=== PATIENT | female | born 1990 | race Caucasian/White ===

== ENCOUNTER → 2024-03-09 13:56 | Outpatient (REF) | payer OTHER, SELFPAY | LOC: RAD 13:56 | PROVIDERS: ATTENDING PHYSICIAN Nurse Practitioner Family; FAMILY PHYSICIAN Physician Assistant Medical | DX: Z34.90 Encounter for supervision of normal pregnancy, unspecified, unspecified trimester (principal) | CPT/HCPCS: 76801; 76817 ==

== ENCOUNTER 2024-12-17 12:19 | Inpatient (IN) | payer OTHER, SELFPAY ==
[2024-12-17 12:46] LABS: % Basophils 0.5 % (0-2); % Eosinophils 0.9 % (0-6); % Immature Granulocytes 0.5 % (0-0.5); % Lymphocytes 21.1 % (20.5-51.1); % Monocytes 8.1 % (1.7-9.3); % Neutrophils 68.9 % (42.2-75.2); Absolute Eosinophils 0.1 10^3/uL (0-0.7); Absolute Lymphocytes 1.6 10^3/uL (1.2-3.4); Absolute Monocytes 0.6 10^3/uL (0.1-0.6); Absolute Neutrophils 5.2 10^3/uL (1.4-6.5); Hematocrit 38.6 % (37.0-47.0); Mean Corp Hgb Conc. 33.7 g/dL (33.0-37.0); Mean Corpuscular Hgb 27.4 pg (27.0-31.0); Mean Corpuscular Volume 81.3 fL (81.0-99.0); Nucleated Red Blood Cells % 0 %; Platelet Count 157 10^3/uL (130-400); Red Blood Cell Count 4.75 10^6/uL (4.20-5.40); Red Cell Dist. Width 12.1 % (11.5-14.5); White Blood Cell Count 7.5 10^3/uL (4.8-10.8)
[2024-12-17 13:16] LABS: Blood Urea Nitrogen 7 mg/dl (7-17); Carbon Dioxide 24 mmol/L (22-30); Chloride 102 mmol/L (98-107); Glucose 97 mg/dl (70-99); Potassium 4.4 mmol/L (3.5-5.1); Sodium 134 mmol/L (135-145); eGFR > 60.00
[2024-12-17 13:17] LABS: ALT (SGPT) 37 U/L (0-35); AST (SGOT) 55 U/L (14-36); Albumin 3.4 g/dl (3.5-5.0); Alkaline Phosphatase 268 U/L (38-126)
[2024-12-17 13:23] VITALS: BP 148/85; BMI 26.0
[2024-12-17 13:41] LABS: Protein/creatinine Ratio 0.5; Urine Protein 14 mg/dl
[2024-12-17 14:26] LABS: Estimated Creatinine Clearance 109 ml/min
[2024-12-17] MEDS: CELESTONE SOLUSPAN 2 MG IM (15:38)
--- NOTE | 2024-12-17 18:54 | CON.NEO ---
Consultation
-
Date/Time Consultation Requested: 12/17/2024
Date/Time Consultation Performed: 12/17/2024
Requesting Provider: Iggy
Performing Provider: Felecia
Reason for Consultation: Potential delivery
Consultation - Neonatology
Maternal Labs
Blood Type: A Positive
Antibody Screen: Negative
RPR: Nonreactive
Rubella: Immune
Hep B S Ag: Negative
Hep C: Negative
HIV: Nonreactive
Group B Strep: Unknown
Chlamydia/GC: Negative
Consult
Mother presented to L&D from testing due to elevated blood pressures. Newly identified IUGR with AC at less than 5th percentile, growth at 25th percentile.
Mother being followed closely due to history of fibroid. Mother reports that US have shown abdominal cyst most consistent with ovarian cyst. I do not have access to these records to review. Mother reports that the recommendation would be
for to have abdominal US to evaluate after the delivery.
Current plan from OB/MFM - mother is admitted for continued blood pressure monitoring. She received one dose of betamethasone on 12/17/2024. Plan to deliver for severe range blood pressures or worsening clinical picture.
Maternal Labs:
A+, Abscr-neg. normal pap- HPV neg (05/23/24), rubella immune, RPR-NR. HIV/HCV/HbsAg-neg, GC/CT- negative, 1hr gtt 66, AFP negative, NIPT low risk, CF negative.
Mother, Father and Grandmother were present for the discussion.
They anticipate having a girl and naming her Jhonny.
Mother plans to breastfeed and follow up with [facility].
Points discussed at consult:
As is less than 36 weeks, this will necessitate a NICU admission per unit policy. If is clinically well, then may return to parents for nursery care after 12-25 hours.
- Management at delivery including the possibility of CPAP/intubation/surfactant discussed
- Respiratory: RDS possibility with possibility of worsening for 24-48 hrs, management including CPAP/surfactant/ventilator support may be required
- Nutrition: Hypoglycemia, need for IV fluids, gradual feed advance, Gavage feeding, importance of colostrum feeding, initiation of expression of colostrum within 3-4 hours, availability of donor milk, safety fo donor milk etc. were discussed.
Mother provided verbal consent for donor milk.
- Procedures: Intubation, CPAP, IV placement, blood tests, umbilical arterial or venous lines, gavage feedings were discussed
- CVS: possibility of PDA not discussed in detail at this time
- Jaundice possibility and need for phototherapy discussed
- Family Centered Care: Discussed FCC with emphasis on parental participation during sign off and during management rounds and is encouraged. Availability of blanka eyes camera also discussed
Mom and Dad were given the opportunity to ask questions throughout and open invitation to call if any questions come as they absorb all the information given so far.
Face to Face Time
Total Azbp-xv-Mehh Time (in Minutes): 30
[2024-12-18 00:29] LABS: ALT (SGPT) 39 U/L (0-35); AST (SGOT) 53 U/L (14-36); Albumin 3.7 g/dl (3.5-5.0); Alkaline Phosphatase 331 U/L (38-126); Blood Urea Nitrogen 6 mg/dl (7-17); Calcium 9.6 mg/dl (8.4-10.2); Carbon Dioxide 18 mmol/L (22-30); Chloride 104 mmol/L (98-107); Estimated Creatinine Clearance 109 ml/min; Glucose 120 mg/dl (70-99); Potassium 4.4 mmol/L (3.5-5.1); Sodium 134 mmol/L (135-145); Total Bilirubin 0.2 mg/dl (0.2-1.3); Total Protein 6.4 g/dl (6.3-8.2); eGFR > 60.00
[2024-12-18 00:34] LABS: % Basophils 0.2 % (0-2); % Immature Granulocytes 2.3 % (0-0.5); % Lymphocytes 12.5 % (20.5-51.1); % Monocytes 1.6 % (1.7-9.3); % Neutrophils 83.4 % (42.2-75.2); Absolute Immature Granulocytes 0.2 10^3/uL (0-0.05); Absolute Lymphocytes 1.2 10^3/uL (1.2-3.4); Absolute Monocytes 0.2 10^3/uL (0.1-0.6); Absolute Neutrophils 7.8 10^3/uL (1.4-6.5); Hemoglobin 13.3 g/dL (12.0-16.0); Mean Corp Hgb Conc. 34.1 g/dL (33.0-37.0); Mean Corpuscular Hgb 27.5 pg (27.0-31.0); Mean Corpuscular Volume 80.7 fL (81.0-99.0); Nucleated Red Blood Cells % 0 %; Platelet Count 177 10^3/uL (130-400); Red Blood Cell Count 4.83 10^6/uL (4.20-5.40); Red Cell Dist. Width 12.1 % (11.5-14.5); White Blood Cell Count 9.3 10^3/uL (4.8-10.8)
[2024-12-18] MEDS: PRENATAL PLUS PO (08:00)
[2024-12-18 12:28] LABS: % Basophils 0.1 % (0-2); % Immature Granulocytes 0.8 % (0-0.5); % Lymphocytes 13.6 % (20.5-51.1); % Monocytes 7.9 % (1.7-9.3); % Neutrophils 77.6 % (42.2-75.2); Absolute Immature Granulocytes 0.1 10^3/uL (0-0.05); Absolute Monocytes 1.1 10^3/uL (0.1-0.6); Absolute Neutrophils 11.1 10^3/uL (1.4-6.5); Hematocrit 39.5 % (37.0-47.0); Hemoglobin 13.1 g/dL (12.0-16.0); Mean Corp Hgb Conc. 33.2 g/dL (33.0-37.0); Mean Corpuscular Hgb 27.4 pg (27.0-31.0); Mean Corpuscular Volume 82.6 fL (81.0-99.0); Mean Platelet Volume 12.5 fL (7.4-10.4); Nucleated Red Blood Cells % 0 %; Platelet Count 173 10^3/uL (130-400); Red Blood Cell Count 4.78 10^6/uL (4.20-5.40); Red Cell Dist. Width 12.1 % (11.5-14.5); White Blood Cell Count 14.4 10^3/uL (4.8-10.8)
[2024-12-18 13:02] LABS: ALT (SGPT) 37 U/L (0-35); AST (SGOT) 45 U/L (14-36); Albumin 3.6 g/dl (3.5-5.0); Alkaline Phosphatase 306 U/L (38-126); Blood Urea Nitrogen 10 mg/dl (7-17); Calcium 9.3 mg/dl (8.4-10.2); Carbon Dioxide 20 mmol/L (22-30); Chloride 103 mmol/L (98-107); Estimated Creatinine Clearance 109 ml/min; Glucose 124 mg/dl (70-99); Potassium 3.8 mmol/L (3.5-5.1); Sodium 134 mmol/L (135-145); Total Bilirubin 0.1 mg/dl (0.2-1.3); Total Protein 6.4 g/dl (6.3-8.2); eGFR > 60.00
[2024-12-18] MEDS: CELESTONE SOLUSPAN 2 MG IM (15:13)
[2024-12-19 04:31] LABS: Hematocrit 36.6 % (37.0-47.0); Hemoglobin 12.2 g/dL (12.0-16.0); Mean Corp Hgb Conc. 33.3 g/dL (33.0-37.0); Mean Corpuscular Hgb 27.5 pg (27.0-31.0); Mean Corpuscular Volume 82.4 fL (81.0-99.0); Mean Platelet Volume 12.1 fL (7.4-10.4); Platelet Count 162 10^3/uL (130-400); Red Blood Cell Count 4.44 10^6/uL (4.20-5.40); Red Cell Dist. Width 12.2 % (11.5-14.5); White Blood Cell Count 12.6 10^3/uL (4.8-10.8)
[2024-12-19 05:17] LABS: ALT (SGPT) 37 U/L (0-35); AST (SGOT) 48 U/L (14-36); Albumin 3.3 g/dl (3.5-5.0); Alkaline Phosphatase 256 U/L (38-126); Blood Urea Nitrogen 10 mg/dl (7-17); Calcium 8.8 mg/dl (8.4-10.2); Carbon Dioxide 22 mmol/L (22-30); Chloride 106 mmol/L (98-107); Estimated Creatinine Clearance 109 ml/min; Glucose 104 mg/dl (70-99); Potassium 4.5 mmol/L (3.5-5.1); Sodium 136 mmol/L (135-145); Total Bilirubin 0.2 mg/dl (0.2-1.3); Total Protein 5.9 g/dl (6.3-8.2); eGFR > 60.00
[2024-12-19] MEDS: CYTOTEC 25 MICROGRAM VAG (09:26)
[2024-12-19] MEDS: CYTOTEC 50 MICROGRAM PO ×3 (13:37→22:15)
[2024-12-19] MEDS: PRENATAL PLUS 1 TABLET PO (13:41)
[2024-12-19] MEDS: LR 1000 IV (19:36)
[2024-12-20] MEDS: CYTOTEC PO ×2 (04:48)
[2024-12-20 05:43] LABS: Hematocrit 38.6 % (37.0-47.0); Hemoglobin 13.2 g/dL (12.0-16.0); Mean Corp Hgb Conc. 34.2 g/dL (33.0-37.0); Mean Corpuscular Hgb 27.7 pg (27.0-31.0); Mean Corpuscular Volume 81.1 fL (81.0-99.0); Mean Platelet Volume 12.1 fL (7.4-10.4); Platelet Count 164 10^3/uL (130-400); Red Blood Cell Count 4.76 10^6/uL (4.20-5.40); Red Cell Dist. Width 12.1 % (11.5-14.5); White Blood Cell Count 14.2 10^3/uL (4.8-10.8)
[2024-12-20 06:05] LABS: ALT (SGPT) 92 U/L (0-35); AST (SGOT) 96 U/L (14-36); Albumin 3.4 g/dl (3.5-5.0); Alkaline Phosphatase 287 U/L (38-126); Blood Urea Nitrogen 11 mg/dl (7-17); Carbon Dioxide 22 mmol/L (22-30); Chloride 104 mmol/L (98-107); Estimated Creatinine Clearance 109 ml/min; Glucose 87 mg/dl (70-99); Potassium 3.9 mmol/L (3.5-5.1); Sodium 134 mmol/L (135-145); Total Bilirubin < 0.1 mg/dl (0.2-1.3); Total Protein 6.1 g/dl (6.3-8.2); eGFR > 60.00
[2024-12-20] MEDS: MAGNESIUM SULFATE 100 IV (06:29)
[2024-12-20] MEDS: LR 1000 IV (06:29)
[2024-12-20] MEDS: MAGNESIUM SULFATE 40 GRAM 1000 IV (06:53)
[2024-12-20] MEDS: CYTOTEC 50 MICROGRAM PO (07:08)
[2024-12-20] MEDS: PRENATAL PLUS PO (07:11)
[2024-12-20] MEDS: TRANDATE 20 MG IV ×2 (08:00→16:00)
[2024-12-20] MEDS: STADOL 1 MG IV (08:03)
[2024-12-20 11:54] LABS: Hemoglobin 13.8 g/dL (12.0-16.0); Mean Corp Hgb Conc. 34.5 g/dL (33.0-37.0); Mean Corpuscular Hgb 27.7 pg (27.0-31.0); Mean Corpuscular Volume 80.3 fL (81.0-99.0); Mean Platelet Volume 12.6 fL (7.4-10.4); Platelet Count 177 10^3/uL (130-400); Red Blood Cell Count 4.98 10^6/uL (4.20-5.40); Red Cell Dist. Width 12.2 % (11.5-14.5); White Blood Cell Count 13.5 10^3/uL (4.8-10.8)
[2024-12-20 12:00] LABS: ALT (SGPT) 140 U/L (0-35); AST (SGOT) 160 U/L (14-36); Albumin 3.6 g/dl (3.5-5.0); Alkaline Phosphatase 339 U/L (38-126); Blood Urea Nitrogen 10 mg/dl (7-17); Carbon Dioxide 25 mmol/L (22-30); Chloride 102 mmol/L (98-107); Estimated Creatinine Clearance 109 ml/min; Glucose 87 mg/dl (70-99); Potassium 4.3 mmol/L (3.5-5.1); Sodium 135 mmol/L (135-145); Total Bilirubin 0.1 mg/dl (0.2-1.3); Total Protein 6.4 g/dl (6.3-8.2); eGFR > 60.00
[2024-12-20] MEDS: ANCEF 10 IV (12:24)
[2024-12-20] MEDS: BICITRA 30 ML PO (12:24)
[2024-12-20] MEDS: TYLENOL 1000 MG PO (12:24)
[2024-12-20] MEDS: TORADOL 15 MG IV ×2 (14:04→20:08)
--- NOTE | 2024-12-20 14:07 | HPS.HSE ---
Family Physician
-
Family Physician: NOT KNOW UNKNOWN - PT DOES
Chief Complaint
-
IUGR, preeclampsia with severe features
History of Present Illness
Patient is a 34yo @35.4 who presented to Labor and Delivery on 12/17 from [facility] with elevated BPs, proteinuria, mildly elevated LFTs and IUGR. She had a growth US done for uterine fibroid which showed IUGR with AC in the 5%tile. She was sent
to [facility] for NST and PEPE. In [facility], she had one severe range BP with Pr/Cr 0.5 and AST/ALT 37. [facility] recommended inpatient observation to trend LFTs, monitor BPs and betamethasone. Patient was monitored on L&Dand initially LFTs were downtrending but
then started to increased. Induction of labor was recommended. Her induction started on 12/19 with Cytotec. She received a total of 225mcg of Cytotec. Repeat labs on the morning of 12/20 showed severe range LFTs (AST/ALT 96/92) and she was started on
magnesium. Repeat labs 6 hours later showed LFTs continued to increased (AST/ALT 160/140) and her cervical exam remained unchanged. Given patient was remote from delivery with increasing LFTs, section was recommended.
complications:
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
- Posterior uterine fibroid
- Suspected ovarian cyst 10mm
labs: A+, Abscr-neg. normal pap- HPV neg (05/23/24), rubella immune, RPR-NR. HIV/HCV/HbsAg-neg, GC/CT- negative, 1hr gtt 66, AFP negative, NIPT low risk, CF negative.
PMHx- neg
FHx- non contributory
Social- no etoh, tobacco, or illicit drug use
NKA
Meds: 28 mg- 800 mcg tablet
Medical History
Past Medical History
Past Medical History: Reports None
Past Surgical History: Reports None
Social History
Tobacco: Non-smoker
Alcohol: None
Drug: None
Family History
Family History: Not pertinent
Allergies / Home Medications
Allergies reflects when Allergies were last updated in [facility].
Home Medications with original date entered in [facility]
Allergy/Medication List:
Meds: PNV
NKDA
Review of Systems
-
A 12 point ROS was completed and negative except as noted: Yes
Physical Exam
Vital Signs
Vital Signs
Temp Pulse Resp BP
98.4 F 16 67 158/88
12/17/24 13:23 12/17/24 13:23 12/17/24 13:23 12/20/24 08:00
Physical Exam
General: Well Developed and Well Nourished
HEENT: NormoCephalic
Respiratory: Non Labored Respirations
Cardiac: Regular Rhythm
Skin: Warm and Dry
Neuro: Awake and Alert
Psych: Calm
Laboratory Results
-
12/20/24 11:32
12/20/24 11:32
Laboratory Results
Total Bilirubin 0.1 mg/dl (0.2-1.3) L 12/20/24 11:32
AST 160 U/L (14-36) H 12/20/24 11:32
ALT 140 U/L (0-35) H 12/20/24 11:32
Alkaline Phosphatase 339 U/L (38-126) H 12/20/24 11:32
Impression/Plan
-
IMPRESSION:
Patient is a 34yo at 35.4 weeks preeclampsia with severe features (LFTs), IUGR, uterine fibroid, increasing LFTs remote from delivery
PLAN:
- LFTs continue to increased and cervical exam remains cl/th/hi despite 24 hours of Cytotec. Since LFTs continue to increase and she is remote from delivery, recommend proceeding with primary section. Risks, benefits and alternatives
including bleeding, infection, damage to surrounding structures and need for future operations discussed and all questions answered. Consents were signed. Anesthesia was notified.
- Ancef 2g ordered for antibiotic prophylaxis. Bicitra and Tylenol ordered.
--- NOTE | 2024-12-20 14:23 | OR.RPT ---
Operative Report
Operative Report
Preop diagnosis: IUP @35.4, preeclampsia with severe features, worsening LFTs, remote from delivery, uterine fibroid, IUGR
Postop diagnosis: same
Procedure: Primary low transverse section
Surgeon: Juan Francisco
Anesthesia: Park, spinal
QBL: 525mL
Findings: Viable female born at 1305, with Apgars 9/9. Uterus not exteriorized secondary to 6cm pedunculated posterior fibroid, normal appearing bilateral fallopian tubes, 2cm anterior subserosal fibroid
Complications: none
Ruffin catheter draining clear urine before and after the procedure
Indication: Patient is a 34yo @35.4 who presented to Labor and Delivery on 12/17 from [facility] with elevated BPs, proteinuria, mildly elevated LFTs and IUGR. She had a growth US done for uterine fibroid which showed IUGR with an AC in the 5%tile.
She was sent to [facility] for NST and PEPE. In [facility], she had one severe range BP with Pr/Cr 0.5 and AST/ALT 37. [facility] recommended inpatient observation to trend LFTs, monitor BPs and betamethasone. Patient was monitored on L&D and initially LFTs were
downtrending but then started to increase. Induction of labor was recommended. Her induction started on 12/19 with Cytotec. She received a total of 225mcg of Cytotec. Repeat labs on the morning of 12/20 showed severe range LFTs (AST/ALT 96/92) and she
was started on magnesium. Repeat labs 6 hours later showed LFTs continued to increased (AST/ALT 160/140) and her cervical exam remained unchanged (cl/th/hi). Given patient was remote from delivery with increasing LFTs, section was
recommended.
Procedure: Patient was taken to the operating room where spinal anesthesia was administered and found to be adequate. 2g of Ancef was given for antibiotic prophylaxis. The abdomen was prepped with ChloraPrep. The patient was draped in the normal
sterile fashion. She was placed in the dorsal supine position with a left lateral tilt. A Pfannenstiel incision was made with a 10 blade and carried down to the fascia with a scalpel. Hemostasis achieved with Bovie. The fascia was incised and
dissected laterally with Terrazas scissors. The superior aspect of the fascia was grasped with Whit clamps. The underlying rectus fascia was sharply dissected with Terrazas scissors. In a similar fashion the inferior aspect of the fascia was elevated with
Whit clamps and the rectus muscle was dissected off with Terrazas scissors. The rectus muscles were down the midline to the level of the pubic symphysis with manual dissection and Metzenbaum. The peritoneum was bluntly entered and extended
using manual traction and Terrazas scissors.
Bhardwaj retractor and bladder blade were placed revealing good visualization of the bladder. The vesicouterine peritoneum was identified. A thin lower uterine segment was noted. The lower uterine segment was incised with a scalpel. Amniotic sac
noted at entry into the cavity. The amniotic sac was ruptured with an Allis clamp for clear fluid. The uterine incision was extended bluntly with lateral and upward traction.
The fetus was in cephalic presentation. The head was elevated out of the pelvis with special attention paid to avoid using the uterine incision as a fulcrum. Gentle fundal pressure was applied one the head was brought to the incision. The head
delivered through the hysterotomy and the rest of the delivered without difficulty. Delayed cord clamping was performed. The infant was handed off to the c application developer. IV oxytocin was started to facilitate uterine contractions. The placenta
was manually extracted and sent to pathology for evaluation. The uterus was not exteriorized as there was a 6cm pedunculated posterior fibroid. Allis clamps were placed at the apices of the hysterotomy. The inside of the uterus was wiped with a lap
sponge to assure complete removal of placental membranes. Fundal massage was performed and uterus noted to be firm. The uterine incision was closed with 0 Vicryl in a running locked fashion. Oozing noted from the right side of the hysterotomy and
Bovie cautery was used to achieve hemostasis. The hysterotomy was inspected and noted to be hemostatic. Blood clots and fluid were wiped out of the abdomen and pelvis with moist laparotomy sponges. The hysterotomy was examined again and noted to be
hemostatic.
The rectus muscles were inspected and noted to be hemostatic. The fascial layer was closed in a running continuous fashion using 0 Vicryl. The subcutaneous tissue was copiously irrigated and any small bleeding vessels were cauterized with Bovie
cautery. The subcutaneous tissue was reapproximated in a running continuous fashion with 2-0 Plain. The skin was closed with 4-0 Vicryl in a subcuticular fashion. The incision was covered with skin glue. The patient tolerated the procedure well. All
sponge and instrument counts were correct times two. The patient was taken to the recovery room in stable condition.
[2024-12-20] MEDS: TRANDATE 40 MG IV (16:20)
[2024-12-20] MEDS: PROCARDIA XL (EXTENDED RELEASE) 30 MG PO (20:08)
[2024-12-20] MEDS: ZOFRAN 4 MG IV (20:08)
[2024-12-21] MEDS: LR 1000 IV (00:04)
[2024-12-21] MEDS: TORADOL 15 MG IV ×2 (02:00→08:08)
[2024-12-21] MEDS: MAGNESIUM SULFATE 40 GRAM 1000 IV (02:00)
[2024-12-21 06:40] LABS: Hematocrit 40.3 % (37.0-47.0); Hemoglobin 14.2 g/dL (12.0-16.0); Mean Corp Hgb Conc. 35.2 g/dL (33.0-37.0); Mean Corpuscular Hgb 28.2 pg (27.0-31.0); Mean Corpuscular Volume 80.1 fL (81.0-99.0); Mean Platelet Volume 12.2 fL (7.4-10.4); Platelet Count 190 10^3/uL (130-400); Red Blood Cell Count 5.03 10^6/uL (4.20-5.40); Red Cell Dist. Width 12.3 % (11.5-14.5); White Blood Cell Count 17.1 10^3/uL (4.8-10.8)
[2024-12-21 06:47] LABS: ALT (SGPT) 173 U/L (0-35); AST (SGOT) 162 U/L (14-36); Albumin 3.7 g/dl (3.5-5.0); Alkaline Phosphatase 296 U/L (38-126); Blood Urea Nitrogen 8 mg/dl (7-17); Calcium 6.5 mg/dl (8.4-10.2); Carbon Dioxide 24 mmol/L (22-30); Chloride 99 mmol/L (98-107); Estimated Creatinine Clearance 109 ml/min; Glucose 98 mg/dl (70-99); Potassium 4.2 mmol/L (3.5-5.1); Sodium 134 mmol/L (135-145); Total Bilirubin 0.2 mg/dl (0.2-1.3); Total Protein 6.6 g/dl (6.3-8.2); eGFR > 60.00
--- NOTE | 2024-12-21 08:01 | W.PN.ANS.POP ---
Anesthesia Post Operative
- Anesthesia Post Op Note
Vital Signs Stable-See Nursing Note: Yes
Airway Patent: Yes
Adequate Pain Control: Yes
Change in Mental Status: No
Current Postoperative Nausea & Vomiting: No
Anesthesia Complications: No
General Anesthetic Recall: No
Unplanned Admission: No
Post Op Hydration Adequate: Yes
[2024-12-21] MEDS: PRENATAL PLUS 1 TABLET PO (08:07)
[2024-12-21] MEDS: PROCARDIA XL (EXTENDED RELEASE) 30 MG PO (08:07)
[2024-12-21] MEDS: MOTRIN 600 MG PO ×2 (14:35→21:05)
[2024-12-21] MEDS: SENOKOT-S 1 TABLET PO (14:35)
[2024-12-21] MEDS: LR IV (14:35)
[2024-12-21] MEDS: TYLENOL 650 MG PO (21:04)
[2024-12-22 05:00] LABS: Hematocrit 40.6 % (37.0-47.0); Hemoglobin 13.5 g/dL (12.0-16.0); Mean Corp Hgb Conc. 33.3 g/dL (33.0-37.0); Mean Corpuscular Hgb 27.3 pg (27.0-31.0); Mean Platelet Volume 11.5 fL (7.4-10.4); Platelet Count 214 10^3/uL (130-400); Red Blood Cell Count 4.95 10^6/uL (4.20-5.40); Red Cell Dist. Width 12.3 % (11.5-14.5); White Blood Cell Count 10.3 10^3/uL (4.8-10.8)
[2024-12-22] MEDS: TRANDATE 200 MG PO (05:13)
[2024-12-22 05:25] LABS: ALT (SGPT) 99 U/L (0-35); AST (SGOT) 54 U/L (14-36)
[2024-12-22] MEDS: SENOKOT-S 1 TABLET PO (08:03)
[2024-12-22] MEDS: MOTRIN 600 MG PO ×2 (08:03→20:43)
[2024-12-22] MEDS: PRENATAL PLUS 1 TABLET PO (08:03)
[2024-12-22] MEDS: PROCARDIA XL (EXTENDED RELEASE) 30 MG PO (08:04)
[2024-12-22 16:17] LABS: Syphilis/T. pallidum Ab Reflex Negative (Negative)
[2024-12-22] MEDS: TYLENOL 650 MG PO (20:42)
--- NOTE | 2024-12-23 04:36 | DOWNTIME ---
There was a [employer] Client Job Developer Downtime on 12/23/2024 from 0100 to 12/23/2023 at 0205 . Downtime documentation of patient's care, including medication administrations, has been reconciled in the electronic record per guidelines. Refer to the
patient's paper chart under the miscellaneous tab to see printed paper medication records and downtime forms.
[2024-12-23] MEDS: PRENATAL PLUS 1 TABLET PO (08:48)
[2024-12-23] MEDS: SENOKOT-S 1 TABLET PO (08:48)
[2024-12-23] MEDS: MOTRIN 600 MG PO ×2 (08:48→19:40)
[2024-12-23] MEDS: PROCARDIA XL (EXTENDED RELEASE) 30 MG PO (08:49)
--- NOTE | 2024-12-23 10:31 | CON.CAR ---
Addendum entered and electronically signed by Chris Rowe MD 12/23/24 11:19:
I saw and examined the patient.
The SENIOR ANIMAL TRAINER or PA's note was reviewed and I agree with the note.
Comment: General: Well developed, well nourished in NAD.
Neck: Supple, no JVD, HJR, carotids +2 B/L, no bruits bilaterally.
Heart: Non displaced PMI, RRR, no murmurs, No S3, S4, no rubs.
Lungs: Clear to auscultation bilaterally, no wheeze, rhonchi, rubs bilaterally,
normal expiratory phase.
Extremities: No clubbing, cyanosis or edema bilaterally.
Neuro: Grossly nonfocal, awake, alert and oriented x3.
Myrna has no significant past medical history. Cardiology is consulted for preeclampsia and hypertension. Her blood pressure is suboptimally controlled on nifedipine. Will add labetalol 200 mg p.o. twice daily. Will check EKG and echocardiogram.
She is asked to follow-up blood pressure at home. Hopefully over time these medications can be weaned off. Discussed with patient and in detail. Hopeful stable for discharge on 12/24
Original Note:
Consultation
Consultation Request
Date/Time Consultation Requested: 12/23/24
Date/Time Consultation Performed: 12/23/24
Requesting Provider: Dr. Parkinson
Performing Provider: Dr. Rowe
Reason for Consultation: Severe pre-eclampsia, post- HTN
Medical History
-
History of Present Illness:
Patient came to for nonstress test last and since admission had delivery and cardiology is now consulted for post- HTN. Patient reports miscarriage last year and that on an u/s following that she was noted to have a
uterine fibroid. Patient reports that she was ordered u/s q 6 weeks with this to monitor uterine fibroid size and during one of the u/s studies there was concern for ovarian cyst and u/s studies were moved up to every 4 weeks.
Throughout this time patient was following with [employer] and reports she was always pleasantly surprised that her BP was reportedly good because during occasional PCP visits prior to her BP would be high initially and then improve during the
office visit. Patient was also pleasantly surprised about her BPs being normal during because her mother had issues with HTN during pregnancies for patient and patient's older brother including due to HTN during , but
patient is not sure if her mother was actually diagnosed with pre-eclampsia. During her routine u/s last there was possible IUGR and so patient was sent to for nonstress test and patient was noted to be HTN. Patient was admitted
and labs worsened throughout the weekend with increased proteinuria and worsening LFTs. Patient had on 12/20/24 and post- has continued with HTN.
PMH:
Uterine fibroid
Intrauterine growth restriction
s/p 12/20/24
FH HTN
Past Medical History
Past Medical History: Other (in HPI)
Past Surgical History: None
Social History
Tobacco: Non-Smoker
Alcohol: Occasional (none while and prior to was occasional to rare)
Drug: None
Personal:
Living: With Family
Employment: Employed
Family History
Family History: Hypertension (38 y/o brother with HTN) and Other (mother had HTN while with patient's older sibling and was delivered early due to HTN, patient's mother was monitored for HTN, but no intervention required while with
patient)
Allergies / Home Medications
Allergy/AdvReac Type Severity Reaction Status Date / Time
No Known Allergies Allergy Verified 12/17/24 13:08
�Medication �Instructions �Recorded �Confirmed �Type
1 tab PO HS 12/17/24 12/17/24 History
Review of Systems
-
History Source: Patient and Family ( sitting bedside)
All other systems: Negative unless noted
Physical Exam
Vital Signs
Temp Pulse Resp BP
98.4 F 68 67 150/84
12/17/24 13:23 12/23/24 08:49 12/17/24 13:23 12/23/24 08:49
GEN: NAD. AAOx3
HEENT: EOMI, MMM
LUNGS: RA. CTA B/L, no wheezes or rales
CV: Tachycardic. Reg, S1/S2, no murmur
ABD: soft, BS+, NT, ND
EXT: Trace B/L LE edema. No clubbing, cyanosis or lesions B/L
NEURO: Gross non-focal
SKIN: Warm, dry and pink. No rash
Lab Results
12/22/24 04:28
12/21/24 06:20
Impression / Plan
-
PCP: Bianca Cee
[employer]: DW
Impression:
Post- HTN
Severe pre-eclampsia
Uterine fibroid
Intrauterine growth restriction
s/p 12/20/24
FH HTN
Tachycardia
Plan:
-Patient came to for nonstress test last and since admission had delivery and cardiology is now consulted for post- HTN. Patient reports miscarriage last year and that on an u/s following that she was noted to have
a uterine fibroid. Patient reports that she was ordered u/s q 6 weeks with this to monitor uterine fibroid size and during one of the u/s studies there was concern for ovarian cyst and u/s studies were moved up to every 4 weeks.
Throughout this time patient was following with [employer] and reports she was always pleasantly surprised that her BP was reportedly good because during occasional PCP visits prior to her BP would be high initially and then improve during the
office visit. Patient was also pleasantly surprised about her BPs being normal during because her mother had issues with HTN during pregnancies for patient and patient's older brother including due to HTN during , but
patient is not sure if her mother was actually diagnosed with pre-eclampsia. During her routine u/s last there was possible IUGR and so patient was sent to for nonstress test and patient was noted to be HTN. Patient was admitted
and labs worsened throughout the weekend with increased proteinuria and worsening LFTs. Patient had on 12/20/24 and post- has continued with HTN.
-Check ECG, ordered by me
-Check echo, ordered by me
-Will add labetalol 200 mg BID
-Cont nifedipine XL 30 mg daily.
-Patient was asked to get an Omron BP cuff and check BPs at home twice a day to keep a log.
-Will get patient an appt for patient to be seen in the office in 1 week and working on weaning and then stopping meds.
[2024-12-23] MEDS: TRANDATE 200 MG PO ×2 (11:52→19:40)
[2024-12-23] MEDS: TYLENOL 650 MG PO (19:40)
== END 2024-12-23 20:45 | disposition home or self-care (01) | DRG 788 ==
LOC: LDRP 12:19
PROVIDERS: Obstetrics & Gynecology; Student in an Organized Health Care Education/Training Program; ADMITTING PHYSICIAN Obstetrics & Gynecology; CONSULT PHYSICIAN Internal Medicine Cardiovascular Disease; CONSULT PHYSICIAN Pediatrics Neonatal-Perinatal Medicine
PROC: 3E0P7VZ Introduction of Hormone into Female Reproductive, Via Natural or Artificial Opening (ICD-10-PCS; 2024-12-19)
PROC: 10D00Z1 Extraction of Products of Conception, Low, Open Approach (ICD-10-PCS; 2024-12-20)
DX: O14.14 Severe pre-eclampsia complicating childbirth (principal); O36.5930 Maternal care for other known or suspected poor fetal growth, third trimester, not applicable or unspecified; Z3A.35 35 weeks gestation of pregnancy; Z37.0 Single live birth; D25.2 Subserosal leiomyoma of uterus; O34.13 Maternal care for benign tumor of corpus uteri, third trimester; O60.14X0 Preterm labor third trimester with preterm delivery third trimester, not applicable or unspecified; O99.893 Other specified diseases and conditions complicating puerperium; R00.0 Tachycardia, unspecified
CPT/HCPCS: 88307; 59025; 76818; 80053; 82570; 84156; 84450; 84460; 85025; 85027; 86780; 86850; 86900; 86901; 87070; 93005; 93306